=== PATIENT | female | born 1980 | race Two or more races ===

== ENCOUNTER 2020-10-16 11:31 | Emergency (ER) | payer OTHER ==
[~2020-10-16] VITALS: Ht 160 cm; Wt 60.3 kg
[2020-10-16] MEDS ORDERED: ZITHROMAX500 MG PO (15:57)
== END 2020-10-16 15:59 | disposition home or self-care (01) ==
LOC: ER 11:31
DX: I10 Essential (primary) hypertension (principal); B96.0 Mycoplasma pneumoniae [M. pneumoniae] as the cause of diseases classified elsewhere; Z03.818 Encounter for observation for suspected exposure to other biological agents ruled out